=== PATIENT | male | born 1980 | race Hispanic/Latino ===

== ENCOUNTER 2019-05-09 10:25 | Outpatient (CLI) | payer OTHER | END 2019-05-09 10:26 | disposition home or self-care (01) | LOC: DTY/OP 10:25 | PROVIDERS: ATTEND Surgery | DX: E66.01 Morbid (severe) obesity due to excess calories (principal) | CPT/HCPCS: 97802 ==

== ENCOUNTER 2019-08-21 07:20 | Outpatient (CLI) | payer OTHER ==
[2019-08-21 13:00] LABS: #Eosinphils 0.1 thou/uL (0.0-0.7); #Monocytes 0.3 thou/uL (0.11-0.59); #Neutrophils 3.3 thou/uL (1.40-6.50); %Basophils 0.7 % (0.0-1.0); %Eosinophils 1.1 % (0.0-10.0); %Lymphocytes 34.6 % (21.0-51.0); %Monocytes 5.7 % (0.0-10.0); Hemoglobin 14.6 g/dL (14.0-18.0); Mean Corpuscular HGB CONC 34.6 g/dL (32.0-36.0); Mean Corpuscular Hemoglobin 31.4 pg (27.0-31.0); Mean Corpuscular Volume 90.6 fL (78.0-98.0); Mean Platelet Volume 9.7 fL (7.4-10.4); Platelet Count 215 thou/uL (130-400); Red Blood Cell (RBC) Count 4.67 mill/uL (4.70-6.10); White Blood Cell (WBC) Count 5.7 thou/uL (4.8-10.8)
[2019-08-21 13:27] LABS: ALT (SGPT) 37 U/L (8-55); AST (SGOT) 27 U/L (5-34); Albumin 4.3 g/dL (3.5-5.0); Alkaline Phosphatase 43 U/L (40-110); Anion Gap 9 mmol/L (10-20); BUN (Urea Nitrogen) 12 mg/dL (8.9-20.6); Bilirubin, Total 0.7 mg/dL (0.2-1.2); Calc. Creatinine Clearance 0 mL/min (70-130); Calcium 9.3 mg/dL (7.8-10.44); Carbon Dioxide 29 mmol/L (22-29); Chloride 103 mmol/L (98-107); Estimated GFR-MDRD Greater than 90; Globulin 2.7 g/dL (2.4-3.5); Glucose 80 mg/dL (70-105); Sodium 137 mmol/L (136-145)
--- NOTE | 2019-08-21 13:50 | RAD ---
PA AND LATERAL CHEST: HISTORY: Preop. FINDINGS: Heart size and mediastinum within normal limits. Lungs clear of infiltrates or arthritic changes of t he spine. IMPRESSION: No active intrathoracic disease. POS: [facility]
== END 2019-08-21 07:21 | disposition home or self-care (01) ==
LOC: LABBT 07:20
PROVIDERS: ATTEND Surgery
DX: Z01.818 Encounter for other preprocedural examination (principal); E66.01 Morbid (severe) obesity due to excess calories
CPT/HCPCS: 71046; 80053; 83036; 85025; 93005; 93010

== ENCOUNTER 2019-08-21 11:00 | Inpatient (IN) | payer OTHER ==
[2019-08-21 11:52] VITALS: BMI 48.8
[2019-08-22] MEDS ORDERED: Lidocaine 1% PF 5 ML VIAL ONE (11:39)
[2019-08-22] MEDS ORDERED: Dexamethasone 20 MG/5 ML VIAL ONE (11:39)
[2019-08-22] MEDS ORDERED: Ketorolac Tromethamine 30 MG/ML VIAL ONE (11:39)
[2019-08-22] MEDS ORDERED: Rocuronium Bromide 10 MG/ML (10ML VIAL) ONE (11:39)
[2019-08-22] MEDS ORDERED: PHENYLEPHRINE-NS 100 MCG/ML 10 ML SYRINGE ONE (11:39)
[2019-08-22] MEDS ORDERED: Ondansetron PF 4 MG/2 ML Vial ONE (11:39)
[2019-08-22] MEDS ORDERED: PROPOFOL 200 MG/20 ML VIAL ONE (11:39)
[2019-08-22] MEDS ORDERED: Glycopyrrolate 0.2 MG/ML 5 ML SYRINGE ONE (11:39)
[2019-08-22] MEDS ORDERED: ePHEDrine/0.9% NaCl/PF SYRINGE 50 mg/10 ml ONE (11:39)
[2019-08-22] MEDS ORDERED: Bupivacaine PF 0.5% 30 ML VIAL ONE (15:11)
[2019-08-22] MEDS ORDERED: Lidocaine 1% w/Epinephrine 1:100K 20 ML VIAL ONE (15:11)
[2019-08-22] MEDS ORDERED: Heparin 5,000 UNITS/ML VIAL ONE (15:12)
[2019-08-22] MEDS ORDERED: Fentanyl 100 MCG/2 ML VIAL ONE ×4 (15:49→18:45)
[2019-08-22] MEDS ORDERED: Lidocaine 2% Jelly 5 ML TUBE ONE (15:50)
[2019-08-22] MEDS ORDERED: Insulin Regular 300 UNITS/3 ML VIAL SC PRN (17:10)
[2019-08-22] MEDS ORDERED: Ondansetron PF 4 MG/2 ML Vial IVP PRN ×2 (17:10→18:57)
[2019-08-22] MEDS ORDERED: Dextrose 50% Abboject 50 ML SYRINGE SLOW IVP PRN (17:10)
[2019-08-22] MEDS ORDERED: hydrALAZINE 20 MG/ML VIAL SLOW IVP PRN (17:10)
[2019-08-22] MEDS ORDERED: diphenhydrAMINE 50 MG/ML VIAL IVP PRN (17:10)
[2019-08-22] MEDS ORDERED: Dextrose 5% in Water 1,000 ML IV PRN (17:10)
[2019-08-22] MEDS ORDERED: Promethazine HCl 25 MG/ML VIAL IM PRN ×3 (17:10→18:57)
[2019-08-22] MEDS ORDERED: Hydrocodone-Acetamin 15 ML UDCUP PO PRN (17:10)
[2019-08-22] MEDS ORDERED: Ondansetron HCl/PF 4 MG/2 ML Vial IVP PRN (17:22)
[2019-08-22] MEDS ORDERED: Promethazine HCl 25 MG/ML VIAL SLOW IVP PRN (17:22)
[2019-08-22] MEDS ORDERED: Promethazine HCl 25 MG/ML VIAL ONE (17:27)
[2019-08-22] MEDS ORDERED: fentaNYL Citrate/PF 2,000 MCG in Sodium Chloride 0.9% 60 ML IV PRN (18:57)
[2019-08-22] MEDS ORDERED: diphenhydrAMINE 50 MG/ML VIAL IM/IV PRN (18:57)
[2019-08-22] MEDS ORDERED: diphenhydrAMINE 25 MG CAP PO PRN (18:57)
[2019-08-22] MEDS ORDERED: Zolpidem Tartrate 5 MG TAB PO PRN (18:57)
[2019-08-22] MEDS ORDERED: Naloxone HCl 0.4 mg/ml Vial IV PRN (18:57)
[2019-08-22] MEDS: 1/2 NS w/KCL 20 mEq 1,000 ML IV SCH ×2 (20:57→23:46)
[2019-08-22] MEDS: Ketorolac Tromethamine 30 MG/ML VIAL IVP SCH (20:57)
[2019-08-22 21:59] LABS: #Lymphocytes 0.6 thou/uL (1.20-3.40); #Monocytes 0.2 thou/uL (0.11-0.59); #Neutrophils 10.7 thou/uL (1.40-6.50); %Basophils 0.3 % (0.0-1.0); %Eosinophils 0.1 % (0.0-10.0); %Monocytes 1.5 % (0.0-10.0); %Neutrophils 93.2 % (42.0-75.0); Hemoglobin 14.1 g/dL (14.0-18.0); Mean Corpuscular HGB CONC 34.1 g/dL (32.0-36.0); Mean Corpuscular Hemoglobin 30.9 pg (27.0-31.0); Mean Corpuscular Volume 90.5 fL (78.0-98.0); Mean Platelet Volume 9.1 fL (7.4-10.4); Platelet Count 184 thou/uL (130-400); Red Blood Cell (RBC) Count 4.57 mill/uL (4.70-6.10); White Blood Cell (WBC) Count 11.5 thou/uL (4.8-10.8)
--- NOTE | 2019-08-22 22:18 | RAD ---
Portable chest: HISTORY: Chest pain COMPARISON: none FINDINGS: Lung toscano are clear. Heart and mediastinum appear unremarkable. Vascularity is normal. Visualized osseous structures unremarkable. IMPRESSION: No acute finding
[2019-08-22 22:20] LABS: Anion Gap 16 mmol/L (10-20); BUN (Urea Nitrogen) 13 mg/dL (8.9-20.6); Calc. Creatinine Clearance 245 mL/min (70-130); Calcium 8.9 mg/dL (7.8-10.44); Carbon Dioxide 22 mmol/L (22-29); Chloride 103 mmol/L (98-107); Estimated GFR-MDRD 87; Glucose 179 mg/dL (70-105); Magnesium 1.8 mg/dL (1.6-2.6); Potassium 4.2 mmol/L (3.5-5.1); Sodium 137 mmol/L (136-145)
[2019-08-22] MEDS ORDERED: Simethicone Chewable 80 MG TAB PO PRN (22:30)
[2019-08-22] MEDS ORDERED: Simethicone Chewable 80 MG TAB PO SCH (22:30)
[2019-08-22] MEDS: CEFAZOLIN 2 GM in Premix Bag 1 BAG IVPB SCH (23:17)
[2019-08-23] MEDS: 1/2 NS w/KCL 20 mEq 1,000 ML IV SCH ×2 (00:37→08:39)
[2019-08-23] MEDS: Ketorolac Tromethamine 30 MG/ML VIAL IVP SCH ×3 (01:27→12:13)
[2019-08-23 04:18] LABS: #Lymphocytes 0.7 thou/uL (1.20-3.40); #Monocytes 0.5 thou/uL (0.11-0.59); #Neutrophils 9.1 thou/uL (1.40-6.50); %Basophils 0.2 % (0.0-1.0); %Eosinophils 0.1 % (0.0-10.0); %Lymphocytes 6.8 % (21.0-51.0); %Monocytes 4.5 % (0.0-10.0); %Neutrophils 88.4 % (42.0-75.0); Hemoglobin 12.4 g/dL (14.0-18.0); Mean Corpuscular HGB CONC 34.8 g/dL (32.0-36.0); Mean Corpuscular Hemoglobin 31.6 pg (27.0-31.0); Mean Corpuscular Volume 90.8 fL (78.0-98.0); Mean Platelet Volume 9.6 fL (7.4-10.4); Platelet Count 235 thou/uL (130-400); Red Blood Cell (RBC) Count 3.92 mill/uL (4.70-6.10); White Blood Cell (WBC) Count 10.3 thou/uL (4.8-10.8)
[2019-08-23 04:43] LABS: Anion Gap 11 mmol/L (10-20); BUN (Urea Nitrogen) 13 mg/dL (8.9-20.6); Calc. Creatinine Clearance 280 mL/min (70-130); Calcium 8.4 mg/dL (7.8-10.44); Carbon Dioxide 24 mmol/L (22-29); Chloride 104 mmol/L (98-107); Estimated GFR-MDRD Greater than 90; Glucose 180 mg/dL (70-105); Potassium 4.3 mmol/L (3.5-5.1); Sodium 135 mmol/L (136-145)
[2019-08-23] MEDS: CEFAZOLIN 2 GM in Premix Bag 1 BAG IVPB SCH (06:03)
--- NOTE | 2019-08-23 07:22 | CON ---
DATE OF CONSULTATION: 08/22/2019 This is AUNG Franz dictating a report for Jose Marie MD. TIME OF ASSESSMENT: 2200. REASON FOR CONSULTATION: Chest pain with multiple comorbidities. HISTORY OF PRESENT ILLNESS: Mr. Love is a 39-year-old gentleman who is status post laparoscopic gastric sleeve done today. He presents having epigastric discomfort since he woke up from surgery. States it was a 5/10 in severity and was notified by the nurse that he was complaining of substernal chest pain. At bedside, the patient denies having any chest pain and states it has been in the epigastric region. It is nonradiating. He states that it has been constant. Reports having excessive burping, but some worsening which tends to exacerbate the discomfort. He has not had any food intake since surgery and is currently n.p.o. with ice chips. The patient denies any difficulty breathing. No diaphoresis. No other associated symptoms. No nausea or vomiting. He has had an EKG done that shows normal sinus rhythm. I have also requested laboratory studies including serial troponins and a chest x-ray. PAST MEDICAL HISTORY: 1. Hypertension. 2. Morbid obesity. 3. Hyperlipidemia. 4. Type 2 diabetes mellitus. PAST SURGICAL HISTORY: 1. Four arthroscopic surgeries from sports injuries as a teenager. 2. Status post laparoscopic gastric sleeve. SOCIAL HISTORY: The patient denies any tobacco use, heavy alcohol consumption, or illicit drug use. He lives with his family and is fully independent. ALLERGIES: NO KNOWN DRUG ALLERGIES. CURRENT MEDICATIONS: 1. Aspirin. 2. . 3. Lisinopril. 4. Metformin. 5. Ozempic. 6. Simvastatin. 7. Multivitamin. PHYSICAL EXAMINATION: GENERAL: The patient appears well developed, well nourished, is in no acute distress. VITAL SIGNS: Temperature 97.6, pulse 72, blood pressure 148/80, respirations 20, O2 saturation 100% on room air. HEENT: Normocephalic and atraumatic. Pupils are equal, round, and reactive to light. Sclerae without icterus. Oropharynx is clear. NECK: Supple. LUNGS: Clear to auscultation bilaterally without any wheezes, rales, or rhonchi. CARDIAC: Regular rate and rhythm. ABDOMEN: Mild discomfort with palpation given recent surgery. No rigidity. No guarding. EXTREMITIES: No lower leg swelling or edema. Mechanical SCDs in place, but no machine attached. IMPRESSION AND PLAN: Mr. Love is a pleasant 39-year-old gentleman who is status post laparoscopic gastric sleeve, who has been referred for the followin. Acute coronary syndrome rule out. The patient denies experiencing any chest pain and states his pain is in the epigastric region, has been constant since waking up from surgery. Made worse with excessive belching. Likely associated with gas from the surgery. Discomfort is a 5/10 in severity. We will give simethicone. EKG has been done and unremarkable. We will trend troponins. He will need to be moved to telemetry for continuous cardiac monitoring as he does have multiple comorbidities and at risk. He has not had any laboratory studies done today, therefore, CBC and CMP will be done as well. Awaiting chest x-ray. We will hold giving any aspirin unless ACS ruled in, as per recommendations by Dr. Marie. 2. Diabetes mellitus. Monitor blood glucose. Initiate insulin sliding scale. We will hold metformin. 3. Hypertension. Monitor blood pressure. Continue home medications. 4. Hyperlipidemia. Resume home medications. 5. Gastrointestinal prophylaxis with famotidine. 6. Deep venous thrombosis prophylaxis with mechanical SCDs. Nurse states there is a shortage of machine and they are searching for one. 7. Code status is full. Surrogate decision maker is his , Ana Love. Thank you for this consultation. We will continue to follow the patient. The patient's case was discussed with Dr. Marie who agrees with plan as above. Job ID: [id number]
--- NOTE | 2019-08-23 08:19 | RAD ---
Upper GI series single column: DATE: 08/23/2019 HISTORY: 39-year-old male immediately status post bariatric surgery. FINDINGS: 15 mL of Gastrografin passes through the narrowed gastric channel without significant holdup. No leak age. IMPRESSION: 1. Status post vertical sleeve gastrectomy. 2. No evidence of complications.
[2019-08-23] MEDS ORDERED: Enoxaparin Sodium 40 MG/0.4 ML SYRINGE SC SCH (09:00)
[2019-08-23] MEDS ORDERED: Pantoprazole 40 MG VIAL IVP SCH (09:00)
--- NOTE | 2019-08-23 09:03 | OP ---
DATE OF PROCEDURE: 08/22/2019 PREOPERATIVE DIAGNOSIS: Morbid obesity. PROCEDURE PERFORMED: Laparoscopic sleeve gastrectomy with esophagogastroscopy. INDICATIONS: The patient is a 39-year-old male, who is morbidly obese, who has attempted multiple weight loss programs without success. FINDINGS: 38-Marshallese bougie used. DESCRIPTION OF PROCEDURE: After informed consent was obtained, the patient was taken to the operating room, given general endotracheal anesthesia. He was placed in the supine position. Abdomen was prepped and draped in usual fashion. Local anesthesia infiltrated subcutaneously and deep and a 12 mm incision was performed approximately 8 inches above the xiphoid slightly to the left. Veress needle inserted. Drop test performed. Pneumoperitoneum was created to a volume of 2 L of carbon dioxide. Utilizing a bladeless 12 mm trocar and 0-degree laparoscope, direct visual entry into the abdominal cavity was performed. Pneumoperitoneum was then created to a pressure of 15 mmHg and the patient placed in steep reverse Trendelenburg position. Navdeep liver retractor inserted. Left lobe of liver retracted superiorly. The pylorus was identified. A 12 mm port placed on the right beneath it, and two 12s placed left subcostal. The omentum was taken off the greater curvature 5 cm from the pylorus utilizing the LigaSure. Short gastrics were divided with the LigaSure and left crura defined with LigaSure. A 38-Marshallese bougie inserted, directed into the antrum. The linear 60 mm green load stapler used to divide the antrum to the bougie, gold load along the bougie, and a series of blues through the angle of His. Intraoperative endoscopy was performed. The video endoscope was inserted under direct vision and advanced into the sleeve. Staple line inspected. There was no bleeding. Staple line was then tested by inflating the new stomach with pressurized air and water. There was no air leak. Stomach was decompressed. Scope removed. The remnant stomach removed from the abdomen through the left lateral port site. The fascia was closed with 0 Vicryl suture and the GraNee needle. Trocars and retractors removed. Skin closed with interrupted 4-0 Rapide. Dermabond applied. The patient tolerated the procedure well, transferred to Recovery in good condition. Sponge and needle count verified correct x2. Job ID: [id number]
[2019-08-23] MEDS ORDERED: Hydrocodone-Acetamin 15 ML UDCUP PO PRN (11:55)
[2019-08-23 12:05] VITALS: BP 116/65; TEMP 98.7
--- NOTE | 2019-08-24 04:12 | DIS ---
DATE OF ADMISSION: 08/22/2019 DATE OF DISCHARGE: 08/23/2019 DISCHARGE DIAGNOSIS: Morbid obesity. PROCEDURES DURING ADMISSION: Laparoscopic sleeve gastrectomy, intraoperative esophagogastroscopy, and postoperative Gastrografin swallow. HOSPITAL COURSE: The patient was admitted, taken to the operating room, where he underwent a sleeve gastrectomy. On the evening of postop day 1, he started having some epigastric pain that the nurse on the surgical floor misinterpreted it as chest pain, so he was transferred to the telemetry unit where he has done fine. His swallow was fine. He was started on liquids. He is tolerating them well. He is now discharged home on hydrocodone and Zofran. He will follow up with me in 2 weeks. Job ID: [id number]
== END 2019-08-23 15:45 | disposition home or self-care (01) | DRG 621 ==
LOC: SURG A 08-22 12:01 → SURG B 08-22 20:52 → 2NO 08-23 01:03
PROVIDERS: ADMIT Surgery; ATTEND Surgery
PROC: 0DB64Z3 Excision of Stomach, Percutaneous Endoscopic Approach, Vertical (ICD-10-PCS; principal; 2019-08-22)
PROC: 0DJ08ZZ Inspection of Upper Intestinal Tract, Via Natural or Artificial Opening Endoscopic (ICD-10-PCS; 2019-08-22)
DX: E66.01 Morbid (severe) obesity due to excess calories (principal); I10 Essential (primary) hypertension; E78.5 Hyperlipidemia, unspecified; E11.9 Type 2 diabetes mellitus without complications; Z98.890 Other specified postprocedural states; Z79.82 Long term (current) use of aspirin; Z79.84 Long term (current) use of oral hypoglycemic drugs; Z79.899 Other long term (current) drug therapy; Z68.42 Body mass index [BMI] 45.0-49.9, adult
CPT/HCPCS: 36415; 36416; 71045; 74241; 80048; 83735; 84443; 84484; 85025; 88307; 88312; 88342; 93005; 93010; C9113; J0131; J0690; J1100; J1644; J1650; J1885; J2001; J2405; J2550; J2704; J3010; J3480; S0020